=== PATIENT | male | born 1970 | race Caucasian/White ===

== ENCOUNTER 2017-01-21 18:59 | Emergency (ER) | payer BC ==
--- NOTE | 2017-01-21 19:19 | Emergency Department Record ---
History of Present Illness - General Chief complaint: Lower Extremity Pain Stated complaint: LT LEG CALF SWELLING/REDNESS/PAIN Time Seen by Provider: 01/21/17 19:13 Source: Patient, Family Mode of Arrival: Ambulatory Limitations: No limitations - History of Present Illness Initial comments: 46 yo male presents with an injury yesterday. He was using a chainsaw cutting trees that had fallen. A large limb hit is left lower anterior leg. He had an abrasion and swelling. He has pain with weight bearing. NO numbness, tingling , weakness, No distal loss of ROM. He can actively flex and extend his foot without pain. No calf pain. No popliteal pain. No proximal or distal tenderness. MD Complaint: Extremity pain, Extremity swelling -: Days(s) (1) Location: Left Radiation: Other (Mid) Quality: Aching Consistency: Constant Improves with: Elevation, Immobilization, Rest Worsens with: Palpation, Weight bearing Associated Symptoms: Denies other symptoms - Related Data Home Medications Medication Instructions Recorded Confirmed Last Taken Atorvastatin Calcium [Lipitor] 40 mg PO DAILY 01/21/17 01/21/17 Unknown Diphenoxylate HCl/Atropine 1 tab PO Q4H PRN 01/21/17 01/21/17 Unknown [Diphenoxylate-Atrop 2.5-0.025] Hydrocodone Bitartrate [[place] 30 mg PO DAILY 01/21/17 01/21/17 Unknown ER] Hyoscyamine Sulfate [Levsin-Sl] 0.125 mg SL Q6H PRN 01/21/17 01/21/17 Unknown Previous Rx's Medication Instructions Recorded Hydrocodone/Acetaminophen [[place] 1 each PO Q6H #15 tablet 01/21/17 7.5-325 Tablet] Allergies Allergy/AdvReac Type Severity Reaction Status Date / Time No Known Drug Allergies Allergy Verified 01/21/17 19:10 Review of Systems Constitutional: Denies: Chills, Fever, Malaise, Weakness Eyes: Denies: Eye discharge ENT: Denies: Congestion, Throat pain Respiratory: Denies: Cough Cardiovascular: Denies: Chest pain, Palpitations, Syncope Endocrine: Denies: Fatigue Gastrointestinal: Denies: Abdominal pain, Diarrhea, Nausea, Vomiting Genitourinary: Denies: Dysuria, Frequency Musculoskeletal: Reports: As per HPI, Myalgia. Denies: Arthralgia, Back pain, Joint swelling, Neck pain Skin: Reports: As per HPI, Bruising Neurological: Denies: Confusion, Headache Psychiatric: Denies: Anxiety, Suicidal thoughts Hematological/Lymphatic: Denies: Easy bleeding, Easy bruising, Swollen glands Physical Exam - General General Appearance: Alert, Oriented x3, Cooperative, No acute distress Limitations: No limitations - Head Head exam: Atraumatic, Normocephalic, Normal inspection - Eye Eye exam: Normal appearance. negative: Conjunctival injection, Periorbital swelling, Scleral icterus - ENT ENT exam: Normal exam Ear exam: Normal external inspection Nasal Exam: Normal inspection Mouth exam: Normal external inspection - Neck Neck exam: Normal inspection, Full ROM - Cardiovascular Cardiovascular Exam: Regular rate, Normal rhythm, Normal heart sounds Peripheral Pulses: 2+: Dorsalis Pedis (L) - Rectal Rectal exam: Deferred - exam: Deferred - Extremities Extremities exam: Full ROM, Normal capillary refill, Tenderness, Other (Local swelling at the sight of the abrasion. No clinical signs of compartment syndrome). negative: Normal inspection, Calf tenderness, Joint swelling, Pedal edema Image of Full Body: 1 - anterior abrasion with local tenderness, no proximal compartment or distal compartment tenderness with firm squeezing. He can flex and extend the foot with ease. Sensation is intact. the distal foot is warm with brisk cap refill - Back Back exam: Reports: Full ROM - Neurological Neurological exam: Alert, Oriented X3 - Psychiatric Psychiatric exam: Normal affect, Normal mood. negative: Agitated, Anxious - Skin Skin exam: Abrasion, Normal color. negative: Cyanosis, Diaphoretic, Erythema, Mottled Course - Reevaluation(s) Reevaluation #1: No signs of compartment syndrome The injury is anterior over the tibia XR ordered and tetanus updated 01/21/17 19:27 01/21/17 20:14 Prelim XR read is negative for any acute process. No FB. STS noted anterior, mild. Disposition Disposition: Discharge Clinical Impression: Contusion of skin Disposition: Home, Self-Care Condition: (1) Good Instructions: Contusion in Adults (ED) Additional Instructions: No weight bearing until pain has resolved Return if you have any increase in swelling, any calf pain, or pain behind the knee Elevate the area as much as possible Continue to use your crutches no prevent weight bearing Prescriptions: Hydrocodone/Acetaminophen [[place] 7.5-325 Tablet] 1 each PO Q6H #15 tablet Forms: Patient Portal Access Time of Disposition: 20:12 Quality - Quality Measures Quality Measures: N/A - Blood Pressure Screening Does Patient Have Any of the Following: No Blood Pressure Classification: Pre-Hypertensive BP Reading Systolic Measurement: 128 Diastolic Measurement: 83 Screening for High Blood Pressure: < Pre-Hypertensive BP, F/U Documented > [ [id number]] Pre-Hypertensive Follow-up Interventions: Referral to alternative/primary care provider.
[2017-01-21] MEDS: Diph,Pert(Acell),Tet Vac 0.5 ML SYR IM ONE (19:25)
[2017-01-21] MEDS: HYDROCODONE/APAP 7.5/325MG TABLET PO ONE ×2 (19:25→20:14)
--- NOTE | 2017-01-23 15:56 | RADIOLOGY REPORT ---
EXAM: LOWER LEG, LEFT HISTORY: LACERATION, LEFT LEG. TECHNIQUE: Two-view left tibia and fibula. COMPARISON: None. ENCOUNTER: Initial. FINDINGS: No fracture. No radiodense foreign body. IMPRESSION: NEGATIVE LEFT TIBIA AND FIBULA. JOB NUMBER: [id number] MTDD
== END 2017-01-21 20:21 | disposition home or self-care (01) ==
LOC: ER 18:59
DX: S80.12XA Contusion of left lower leg, initial encounter (principal); S80.812A Abrasion, left lower leg, initial encounter; W20.8XXA Other cause of strike by thrown, projected or falling object, initial encounter; Y93.H9 Activity, other involving exterior property and land maintenance, building and construction
CPT/HCPCS: 90715; 96372; 99283

== ENCOUNTER 2018-12-19 12:43 | Day surgery (SDC) | payer BC ==
[2018-12-19] MEDS ORDERED: PROPOFOL 10 MG/ML VIAL IV ONE (12:44)
[2018-12-19] MEDS ORDERED: LIDOCAINE 2% MDV (20MG/ML) 20ML VIAL IV ONE (12:44)
--- NOTE | 2018-12-23 09:41 | Operative Note ---
OPERATION: ESOPHAGOGASTRODUODENOSCOPY with biopsy. PREOPERATIVE DIAGNOSIS: Chest pain, rule out GERD. POSTOPERATIVE DIAGNOSIS: Irregular Z line, otherwise normal exam. PROCEDURE: After informed consent was obtained from the patient, he was placed in the left lateral decubitus position in the endoscopy suite, sedated and monitored by the department of anesthesia. Once sedated, a well-lubricated AXI950 gastroscope was placed in the posterior oropharynx under direct visualization and passed to the proximal esophagus. The endoscope was advanced through the proximal, mid, and distal esophagus. The GE junction was slightly irregular. No ulcers, erosions, strictures, varices, or mass lesions were seen. The remainder of the esophagus appeared normal. The gastric body, antrum, pylorus, duodenal bulb and sweep were unremarkable. J-turn views of the proximal stomach were unrevealing. The endoscope was then straightened. GE junction biopsies were obtained. The endoscope removed from the patient with no new findings noted. RECOMMENDATIONS: At this time, it is not obvious that this is a reflux-induced issue. There may be a functional disorder such as noncardiac, non-GI chest wall pain. However, at this point, we will await the results of biopsies and would concur with empiric use of a PPI. As always, thank you for allowing me to participate in the healthcare of your patients. JOE
== END 2018-12-19 13:46 | disposition home or self-care (01) ==
LOC: HOP 12:43
PROVIDERS: ATTEND Internal Medicine Gastroenterology
DX: R07.9 Chest pain, unspecified (principal); K21.9 Gastro-esophageal reflux disease without esophagitis; K31.89 Other diseases of stomach and duodenum; E78.00 Pure hypercholesterolemia, unspecified